=== PATIENT | female | born 1970 | race Caucasian/White ===

== ENCOUNTER 2016-11-05 14:27 | Emergency (ER) | payer OTHER, MEDICARE ==
[~2016-11-05] VITALS: Ht 160 cm; Wt 81.2 kg
[~2016-11-05 14:27] MED LIST: ACETAMINOPHEN/O1 TAB PO; ALBUTEROL2.5 MG/0.5 INH/SOL; ATIVAN1 MG PO; DEXILANT60 M1 PO; DILTIAZEM 12HR120 MG PO; FIORICET 50-301 EACH PO; FLEXERIL10 MG PO; HYDROCODONE/ACE1 TA1 PO; HYDRODIURIL 2525 MG PO; MEDROL DOSEPAK1 PAC PO; MICARDIS HCT 41 EACH PO; MOTRIN 600 MG600 MG PO; MOTRIN800 MG PO; NAPROSYN 500 M500 MG PO; NASONEX0.05 MG/Ac NAS; NORCO 325 MG-51 TAB PO; OMEPRAZOLE D/R20 MG PO; PERCOCET 325 MG1 TA2 PO; PERCOCET 5-3251 EACH PO; PREDNISONE20 M1 PO; PROTONIX 20MG T20 MG PO; ROBITUSSIN W/CO10 ML PO; TESSALON PERLE100 MG PO; VIBRAMYCIN100 MG PO; VICKS DAYQUIL PO; VICKS NYQUIL S236 ML PO
--- NOTE | 2016-11-05 14:54 | ED CARDIAC/CP/PALPITATIONS ---
History of Present Illness General Chief Complaint: General Adult Stated Complaint: LIGHTHEADED,NAUSEA,CHEST TIGHTNESS, ARMS NUMB Source: patient Exam Limitations: no limitations Vital Signs & Intake/Output Vital Signs & Intake/Output Vital Signs Date Time Temp Pulse Resp B/P B/P Pulse O2 O2 Flow FiO2 Mean Ox Delivery Rate 11/05 2054 92 114/64 11/05 1734 98.7 90 18 109/60 98 Room Air 11/05 1436 98.9 101 16 131/83 97 Room Air ED Intake and Output 11/06 0000 11/05 1200 Intake Total Output Total Balance Patient 179 lb Weight Weight Reported by Patient Measurement Method Allergies Coded Allergies: cashew nut (Intermediate, RASH, SWELLING FACE AND ARMS - PER PT CAN STILL BREATHE 04/16/16) Penicillins (RASH 04/16/16) Sulfa (Sulfonamide Antibiotics) (RASH 04/16/16) latex (RASH 04/16/16) morphine (Severe, BORDERLINE COMA 04/16/16) Reconcile Medications Dexlansoprazole (Dexilant) 60 MG CAP.DR.BP 1 CAP PO DAILY GI (Reported) Diltiazem HCl (Diltiazem 12HR ER) 120 MG CAP.ER.12H 1 CAP PO DAILY HEART ( Reported) Ondansetron (Zofran Odt) 4 MG TAB.RAPDIS 1 TAB SL TID nausea Telmisartan/Hydrochlorothiazid (Micardis Hct 40-12.5 MG Tablet) 40 MG-12.5 MG TABLET 1 TAB PO DAILY BP (Reported) Triage Note: PT C/O FEELING LIGHTHEADED, NAUSEA, CHEST TIGHTNESS AND ARM NUMBNESS. TAKEN TO EKG SHABNAM PT STATES S/S STARTED A FEW HOURS AGO. PT STATES SHE THOUGHT SHE WAS HAVING AN ANXIETY ATTACK BUT WHEN IT DIDN'T STOP SHE FELT SHE SHOULD GET IT CHECKED OUT. PT DENIES ANY REFERED PAIN OR SOB. Triage Nurses Notes Reviewed? yes Onset: Abrupt Duration: day(s):, constant, continues in ED Timing: recent history Quality/Severity: moderate, severe Location: central Activities at Onset: none : No Patient currently breastfeeds: No HPI: 46-year-old female comes into emergency room with complaints of feeling lightheaded dizzy nauseous with chest tightness and numbness in both her arms bilaterally. Symptoms began around 11:30 in that order. History of extra beats she reports and is on diltiazem. Patient is seen Jose Torres MD and has had a full medical workup by him within the last couple years including echo stress test. Patient reports some associated shortness of breath. Nothing seems to make the symptoms better or worse. Denies any other associated symptoms. (DOUG HICKMAN) Past History Travel History Traveled to [place] past 21 day No Medical History Any Pertinent Medical History? 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 ENDOMETRIAL ABLASION Psychosocial History What is your primary language [place] Citizen Tobacco Use: Current Daily Use Daily Tobacco Use Amount/Type: => 5 Cigarettes daily ETOH Use: occasional use Illicit Drug Use: denies illicit drug use Family History Hx Contributory? No (DOUG HICKMAN) Review of Systems Review of Systems Constitutional: Reports: no symptoms. EENTM: Reports: no symptoms. Respiratory: Reports: see HPI. Cardiovascular: Reports: see HPI. GI: Reports: see HPI. Genitourinary: Reports: no symptoms. Musculoskeletal: Reports: no symptoms. Skin: Reports: no symptoms. Neurological/Psychological: Reports: no symptoms. Hematologic/Endocrine: Reports: no symptoms. Immunologic/Allergic: Reports: no symptoms. All Other Systems: Reviewed and Negative (DOUG HICKMAN) Physical Exam Physical Exam General Appearance: well developed/nourished, no apparent distress, alert, awake Head: atraumatic, normal appearance Eyes: Bilateral: normal appearance, EOMI. Ears, Nose, Throat: normal pharynx, normal ENT inspection, hearing grossly normal Neck: normal inspection, full range of motion Respiratory: normal breath sounds, no respiratory distress Cardiovascular: regular rate/rhythm Gastrointestinal: soft Back: normal inspection Extremities: normal inspection, normal range of motion, no edema Neurologic/Psych: awake, alert, oriented x 3, normal gait, normal mood/affect Skin: intact, normal color Core Measures ACS in differential dx? Yes Severe Sepsis Present: No Septic Shock Present: No (DOUG HICKMAN) Progress Differential Diagnosis: AMI, aortic dissection, atrial fibrillation, costochondritis, hyperkalemia, hypovolemia, hyperthyroid, myocarditis, pancreatitis, pericarditis, pneumonia, pneumothorax, PSVT, pulmonary embolism, PUD/GERD, PVCs/PACs, respiratory failure, rib fracture, sepsis, unstable angina, V-fib/V-Tach Plan of Care: Orders Procedure Date/time Status TROPONIN LEVEL 11/05 1914 Complete EKG 11/05 1914 Active Telemetry/Inorganic Chemistry Professor 11/05 1453 Active TROPONIN LEVEL 11/05 1453 Complete D-DIMER 11/05 1453 Complete COMPREHENSIVE METABOLIC PANEL 11/05 1453 Complete CBC WITHOUT DIFFERENTIAL 11/05 1453 Complete EKG 11/05 1428 Active Laboratory Tests 11/05/161924: Troponin I < 0.01 11/05/161513: Anion Gap 13, Estimated GFR > 60, BUN/Creatinine Ratio 25.0, Glucose 99, Calcium 9.2, Total Bilirubin 0.6, AST 23, ALT 44, Alkaline Phosphatase 75, Troponin I < 0.01, Total Protein 6.9, Albumin 4.4, Globulin 2.5, Albumin/Globulin Ratio 1.8, D-Dimer 209, CBC w Diff NO MAN DIFF REQ, RBC 4.79, MCV 89.2, MCH 30.7, RDW 13.5, MPV 8.6, Gran % 72.2, Lymphocytes % 20.6, Monocytes % 6.0, Eosinophils % 0.9, Basophils % 0.3, Absolute Granulocytes 5.9, Absolute Lymphocytes 1.7, Absolute Monocytes 0.5, Absolute Eosinophils 0.1, Absolute Basophils 0, PUBS MCHC 34.4 Diagnostic Imaging: Viewed by Me: Radiology Read. Discussed w/RAD: Radiology Read. Radiology Impression: SERVICE DATE: 11/05/16-1453 EXAM TYPE: RAD - XRY-CHEST XRAY, PA AND LATERAL EXAMINATION: XR CHEST CLINICAL INFORMATION: Chest pain. COMPARISON: 04/16/2016 TECHNIQUE: 2 views of the chest were obtained. FINDINGS: Lungs are well expanded and clear. No pulmonary edema, pneumothorax or pleural effusion. Cardiac silhouette is normal in size. The mediastinal, hilar and diaphragmatic contours are normal. There is mild spondylosis of the thoracic spine. IMPRESSION: No acute cardiopulmonary disease. DICTATED BY: BAILEY WALLER MD DATE/TIME DICTATED:11/05/161515 SAP MANAGER:WILBER DATE/TIME TRANSCRIBED:11/05/161515 Initial ED EKG: normal intervals, normal p-waves, normal QRS complex, normal sinus rhythm, rate (97) Repeat EKG: unchanged Comments: Patient clinically looks well. Patient is nontoxic-appearing. Patient is in no apparent distress. Resting comfortably on stretcher. Reevaluated multiple times. Patient is in no apparent distress. Her symptoms have resolved. Case was discussed with Dr. Madsen. 2 unchanged EKGs. 2 normal troponins. Negative d-dimer. No suspicion for acute cardiac event at this time. Patient can follow-up this week as an outpatient with her handmade tile artist. Return if any other concerns worsening symptoms. (SVETA FUCHS,DOUG) Departure Departure Disposition: HOME OR SELF CARE Condition: Stable Clinical Impression Primary Impression: Atypical chest pain Referrals: ANGEL RODRÍGUEZ,INDRA Stoddard (PCP/Family) Additional Instructions: Follow-up with Dr. Melissa wallace your handmade tile artist tomorrow. Return to the emergency room immediately if any other concerns worsening symptoms. Please go over all results of today's visit with your primary care doctor. Contact your primary care doctor to let them know you were here in the emergency room. There may be nonspecific findings which may not be related to your visit today here in the emergency room but may require further evaluation and chronic monitoring by your primary care doctor. If you had a laceration today the chance of foreign body always remains. You should follow-up with your primary care doctor for recheck in 3-5 days for a wound check. If you had an x-ray done there is a chance that a fracture could have been missed on initial read and you should follow-up with your primary care doctor for repeat x-rays if symptoms persist. If your blood pressure was elevated here in the emergency room please have rechecked by her primary care doctor within the next 48 hours by your primary care doctor. If you were prescribed a narcotic here in the emergency room or any type of controlled substances you're not allowed to drive while taking this medication or operate any type of heavy machinery. Narcotics can make you feel lightheaded dizziness nausea and can cause constipation. You may need to warehouse order picker a stool softener. Thank you for choosing [facility] emergency room. Please return to the emergency room immediately if you have any other concerns worsening of symptoms. Departure Forms: Customer Survey General Discharge Information Prescriptions: Current Visit Scripts Ondansetron (Zofran Odt) 1 TAB SL TID #10 TAB (DOUG HICKMAN) PA/DIRECTOR FINANCIAL ANALYSIS Co-Sign Statement Statement: ED Attending supervision documentation- [] I saw and evaluated the patient. I have also reviewed all the pertinent lab results and diagnostic results. I agree with the findings and the plan of care as documented in the PA's/DIRECTOR FINANCIAL ANALYSIS's documentation. [X] I have reviewed the ED Record and agree with the PA's/DIRECTOR FINANCIAL ANALYSIS's documentation. [] Additions or exceptions (if any) to the PAs/DIRECTOR FINANCIAL ANALYSIS's note and plan are summarized below: [] (YVETTE RODRÍGUEZ,ANIKA Burrell) Critical Care Note Critical Care Note Critical Care Time: non-applicable (DOUG HICKMAN)
--- NOTE | 2016-11-05 15:21 | RADIOLOGY REPORT ---
EXAMINATION: XR CHEST CLINICAL INFORMATION: Chest pain. COMPARISON: 04/16/2016 TECHNIQUE: 2 views of the chest were obtained. FINDINGS: Lungs are well expanded and clear. No pulmonary edema, pneumothorax or pleural effusion. Cardiac silhouette is normal in size. The mediastinal, hilar and diaphragmatic contours are normal. There is mild spondylosis of the thoracic spine. IMPRESSION: No acute cardiopulmonary disease.
[2016-11-05 15:40] LABS: ABSOLUTE BASOPHIL COUNT 0 /CUMM (0.0-0.2); ABSOLUTE EOSINOPHIL COUNT 0.1 /CUMM (0.0-0.7); ABSOLUTE GRANULOCYTE CT 5.9 /CUMM (1.4-6.5); ABSOLUTE LYMPH COUNT 1.7 /CUMM (1.2-3.4); ABSOLUTE MONOCYTE COUNT 0.5 /CUMM (0.10-0.60); BASOPHIL % 0.3 % (0.0-2.0); EOSINOPHIL % 0.9 % (0-5); GRANULOCYTE % 72.2 % (42.2-75.2); HEMATOCRIT 42.8 % (37-47); MEAN CORPUSCULAR HGB 30.7 PG (27.0-31.0); MEAN CORPUSCULAR HGB CONC 34.4 G/DL (33.0-37.0); MEAN CORPUSCULAR VOLUME 89.2 FL (81.0-99.0); MEAN PLATELET VOLUME 8.6 FL (7.4-10.4); PLATELET COUNT 214 /CUMM (130-400); RBC DISTRIBUTION WIDTH 13.5 % (11.5-14.5); RED BLOOD CELL CT 4.79 /CUMM (4.20-5.40); WHITE BLOOD CELL COUNT 8.1 /CUMM (4.8-10.8)
[2016-11-05] MEDS ORDERED: ZOFRAN ODT4 M1 SL (20:15)
[2016-11-05 20:54] VITALS: BP 114/64
== END 2016-11-05 20:54 ==
LOC: ERH 14:27
PROVIDERS: Physician Assistant Medical
DX: R07.89 Other chest pain (principal); R11.0 Nausea; R20.0 Anesthesia of skin; R06.02 Shortness of breath; I10 Essential (primary) hypertension; Z72.0 Tobacco use
CPT/HCPCS: 93005; 93010; J3101

== ENCOUNTER 2018-02-05 20:10 | Emergency (ER) | payer OTHER ==
[~2018-02-05 20:10] MED LIST changes: +ZOFRAN ODT4 M1 SL
--- NOTE | 2018-02-05 22:25 | ED GENERAL ADULT ---
History of Present Illness General Chief Complaint: Headache Stated Complaint: GÓMEZ Source: patient Exam Limitations: no limitations Vital Signs & Intake/Output Vital Signs & Intake/Output Vital Signs Date Time Temp Pulse Resp B/P B/P Pulse O2 O2 Flow FiO2 Mean Ox Delivery Rate 02/05 2311 98.3 69 20 126/65 97 Room Air 02/05 2241 99 02/06 2024 97.4 74 18 149/93 98 Room Air Allergies Coded Allergies: cashew nut (Intermediate, RASH, SWELLING FACE AND ARMS - PER PT CAN STILL BREATHE 04/16/16) Penicillins (RASH 04/16/16) Sulfa (Sulfonamide Antibiotics) (RASH 04/16/16) latex (RASH 04/16/16) morphine (Severe, BORDERLINE COMA 04/16/16) Reconcile Medications Azithromycin (Zithromax) 250 MG TABLET 1 DP PO AD sinusitis 2 the first day followed by 1 for days 2-5 Dexlansoprazole (Dexilant) 60 MG CAP.DR.BP 1 CAP PO DAILY GI (Reported) Diltiazem HCl (Diltiazem 12HR ER) 120 MG CAP.ER.12H 1 CAP PO DAILY HEART ( Reported) Fluticasone Propionate (Flonase Allergy Relief) 50 MCG/ACTUATION SPRAY.SUSP 1 SPRAY NS DAILY congestion Naproxen (Naprosyn) 500 MG TABLET 1 TAB PO BID PRN pain Ondansetron (Zofran Odt) 4 MG TAB.RAPDIS 1 TAB SL TID nausea Pseudoephedrine HCl (Nasal Decongestant) 30 MG CAPSULE 1 CAP PO DAILY PRN congestion Telmisartan/Hydrochlorothiazid (Micardis Hct 40-12.5 MG Tablet) 40 MG-12.5 MG TABLET 1 TAB PO DAILY BP (Reported) Triage Note: 47F C/O INTERMITTENT HEADACHE FOR A WEEK, WORSE SINCE YESTERDAY. +EARS POPPING, PRESSURE IN HEAD AND PAIN TO FORHEAD/ORBITS. HAS TAKEN FLEXERIL, TYLENOL AND IBU W/O RELIEF BUT HAS NOT TAKEN ANY ALLERGY MEDS OR DECONGESTANTS. PAIN WORSE W FOREWARD BEND AND LAYING DOWN. PAIN WORST TO BASE OF BACK OF HEAD, AND R SIDE OF HEAD. AFEBRILE. PAIN IS CAUSING DIZZINESS AND NAUSEA. DENIES VISION CHANGES. REPORTS HX OF CLUSTER HEADACHES Triage Nurses Notes Reviewed? yes Onset: Gradual Duration: day(s): Timing: intermittent HPI: 47-year-old female with a history of cluster headaches, hypertension, anxiety presenting with headache 1 week. Patient endorses intermittent headaches over the past week, but headache has been constant since last night. Endorses a frontal headache that feels like a pressure-like sensation and is worse with leaning forward. Also endorses recent popping sensation in her ears. Feels like she has sinus pressure and has had sinus infections in the past. Also endorses nasal congestion. Denies fevers, rhinorrhea, cough, sputum, chest pain , shortness of breath. No head trauma. Not on any anticoagulation. Patient is a current smoker. (Nicol Ross) Past History Travel History Traveled to [place] past 21 day No Medical History Any Pertinent Medical History? see below for history Neurological: NONE EENT: NONE Cardiovascular: hypertension Respiratory: NONE Gastrointestinal: diverticulitis, GERD Hepatic: NONE Renal: UTIs Musculoskeletal: NONE Psychiatric: anxiety Endocrine: NONE Blood Disorders: NONE Cancer(s): NONE MOLDER SWEEP/Reproductive: HYSTERECTOMY Other Medical Hx: OBESITY Tetanus Vaccine: 10/12/11 Surgical History Surgical History: tubal ligation, OV CYST REMOVED. ENDOMETRIAL ABLASION Psychosocial History What is your primary language [place] Tobacco Use: Current Daily Use Daily Tobacco Use Amount/Type: => 5 Cigarettes daily ETOH Use: occasional use Illicit Drug Use: denies illicit drug use Family History Hx Contributory? No (Nicol Ross) Review of Systems Review of Systems Constitutional: Reports: no symptoms. EENTM: Reports: see HPI. Respiratory: Reports: no symptoms. Cardiovascular: Reports: no symptoms. GI: Reports: no symptoms. Genitourinary: Reports: no symptoms. Musculoskeletal: Reports: no symptoms. Skin: Reports: no symptoms. Neurological/Psychological: Reports: see HPI. Hematologic/Endocrine: Reports: no symptoms. Immunologic/Allergic: Reports: no symptoms. All Other Systems: Reviewed and Negative (Nicol Ross) Physical Exam Physical Exam General Appearance: well developed/nourished, no apparent distress, alert, awake , comfortable Comments: Gen.: Well-nourished, well-developed, no acute distress. Head: Normocephalic, atraumatic. No tenderness to palpation over the temporal arteries. Eyes: Normal inspection bilaterally Ears: Normal inspection bilaterally, TMs are unremarkable with no erythema and a good light reflex Nose: Positive nasal edema consistent with congestion, positive tenderness to palpation over the maxillary and frontal sinuses Neck: Normal inspection Lungs: Trace end expiratory wheezing throughout all lung armijo Heart: regular rate and rhythm Abdomen: soft and non-tender Extremities: Normal inspection Neurologic: alert and oriented x3, steady gait, cranial nerves II through XII intact, sensation intact, motor strength 5 out of 5, reflexes 2+, cerebellar function intact. Skin: warm and dry Psychiatric: Normal mood and affect, no apparent delusions or hallucinations, behavior appropriate Core Measures ACS in differential dx? No CVA/TIA Diagnosis: No Sepsis Present: No Sepsis Focused Exam Completed? No (Nicol Ross) Progress Differential Diagnoses I considered the following diagnoses in my evaluation of the patient: [Sinus headache versus cluster headache versus tension headache versus migraine, low concern for meningitis versus pseudotumor cerebri versus ICH] Plan of Care: Exam is consistent with sinusitis and likely a secondary sinus headache. Reports complete resolution of her headache after IM Toradol. Given Rx Flonase, pseudoephedrine, naproxen, and azithromycin. Patient was given a DuoNeb for her wheezing on exam, low concern for Acute exacerbation as she denies any shortness of breath, has no cough or sputum , and vital signs are within normal limits. Instructed to continue using her home albuterol inhaler. We will follow up with her PMD and given strict return precautions. Initial ED EKG: none (Nicol Ross) Departure Departure Disposition: HOME OR SELF CARE Condition: Stable Clinical Impression Primary Impression: Sinusitis Secondary Impressions: Headache Referrals: Kiki RODRÍGUEZ,Kalen Stoddard (PCP/Family) Additional Instructions: Take azithromycin, pseudoephedrine, Flonase, and naproxen as prescribed. Follow -up with your primary care provider for reevaluation. Return to the emergency department for any new or worsening symptoms. Departure Forms: Customer Survey General Discharge Information Prescriptions: Current Visit Scripts Azithromycin (Zithromax) 1 DP PO AD #6 TAB 2 the first day followed by 1 for days 2-5 Fluticasone Propionate (Flonase Allergy Relief) 1 SPRAY NS DAILY #1 BOT Pseudoephedrine HCl (Nasal Decongestant) 1 CAP PO DAILY PRN congestion #10 CAP Naproxen (Naprosyn) 1 TAB PO BID PRN pain #60 TAB (Nicol Ross) PA/GENERAL ADMINISTRATOR Co-Sign Statement Statement: ED Attending supervision documentation- [] I saw and evaluated the patient. I have also reviewed all the pertinent lab results and diagnostic results. I agree with the findings and the plan of care as documented in the PA's/GENERAL ADMINISTRATOR's documentation. [x] I have reviewed the ED Record and agree with the PA's/GENERAL ADMINISTRATOR's documentation. [] Additions or exceptions (if any) to the PAs/GENERAL ADMINISTRATOR's note and plan are summarized below: [] (Devon RODRÍGUEZ,Mckinley Segura) Critical Care Note Critical Care Note Critical Care Time: non-applicable (Nicol Ross)
[2018-02-05 23:11] VITALS: BP 126/65
[2018-02-05] MEDS ORDERED: FLONASE ALLERG9.9 ML NS (23:39)
[2018-02-05] MEDS ORDERED: NASAL DECONGEST30 M2 PO (23:39)
[2018-02-05] MEDS ORDERED: ZITHROMAX250 M2 PO (23:39)
[2018-02-05] MEDS ORDERED: NAPROSYN500 M1 PO (23:39)
== END 2018-02-06 00:02 ==
LOC: ERH 20:10
DX: J32.9 Chronic sinusitis, unspecified (principal); F17.210 Nicotine dependence, cigarettes, uncomplicated
CPT/HCPCS: 1263; 96372; J1885